=== PATIENT | female | born 1990 | race Hispanic/Latino ===

== ENCOUNTER 2016-06-20 13:01 | Emergency (ER) | payer OTHER ==
[~2016-06-20] VITALS: Ht 156.2 cm; Wt 71.8 kg
[~2016-06-20 13:01] MED LIST: PREN1TAB47 PO; PROM25TA14 PO
[2016-06-20 13:13] VITALS: BP 121/71; PULSE 83; RESP 16; O2SAT 100
[2016-06-20] MEDS ORDERED: Ondansetron 2 mg/mL 2 mL Inj IVPUSH ONE ×2 (14:05→14:10)
[2016-06-20] MEDS ORDERED: HYDROmorphone 0.5 mg/0.5 mL iSecure Syringe IVPUSH PRN (14:05)
[2016-06-20 14:10] LABS: Mean Corpuscular Hemoglobin 31.2 pg (27.0-35.0); Mean Corpuscular Volume 91.6 fL (81-100)
[2016-06-20] MEDS ORDERED: fentaNYL-PF 50 mCg/mL 2 mL Inj IVPUSH PRN (14:10)
[2016-06-20 14:32] LABS: APPEARANCE,URINE HAZY (CLEAR,HAZY); COLOR,URINE YELLOW (YELLOW); OCCULT BLOOD,URINE MODERATE (NEGATIVE); UROBILINOGEN,URINE NORMAL (NORMAL)
--- NOTE | 2016-06-20 14:49 | ED.REPORT ---
HPI- Female Date of Service Jun 20, 2016 ED Provider: Mac Dobbins MD The patient is an otherwise healthy 26 year old female who presents to the ED due to light vaginal bleeding onset six days ago. She is , but unsure how far along, her last normal menstrual cycle was three months ago. She is supposed to have her first OBGYN appointment in five days. Her bleeding increased in severity last night along with severe, 10/10, suprapubic abdominal pain. She is tearful and anxious at the ED. The pt has had one previous, full term, normal with no complications. Nursing Notes Stated Complaint: ABDOMINAL PAIN/BLEEDING/ Chief Complaint: & Delivery Nursing Notes Reviewed: Yes ([facility], [facility] not reconciled) Allergies: Coded Allergies: No Known Allergies (Unverified Allergy, Unknown, 10/04/14) Scheduled Vit/Fe Fumarate/Fa-Expunged Drug, Do (-Expunged Drug, Do Not Renew!) 1 Tab Tablet 1 TAB PO DAILY Scheduled PRN Hydrocodone-Acetaminophen 5-325 mg (Hydrocodone-Acetaminophen 5-325 mg) 1 Each Tablet 1-2 TABLET PO Q4H PRN PRN For Pain General Time Seen by MD: 14:05 Chief Complaint Vaginal bleeding... (Mild) Hx Obtained From: Patient Arrived By: Walk-in Sudden in Onset?: Yes Onset Occurred: Yesterday Symptom Duration: Since onset Location: : Suprapubic Radiation: Does not radiate Severity: Current: Pain level 10 out of 10 Status: Last NL menst cycle (march (3 months ago)) : 1 Para: 1 Recent Healthcare: No recent doctor visit, No recent hospitalization Past Medical History Past Medical History Past Surgical History denies Family History non-contributory Smoking History Never Smoker Social History Alcohol Use: Denies alcohol use Ambulatory Status Independent Review of Systems GI: Reports: Abdominal pain Female: Reports: Vaginal bleeding - abnl Complete sys rev & neg: except as marked. Physical Exam Initial Vital Signs Vital Signs (First) Date Time Temp Pulse Resp B/P Pulse Ox O2 Delivery O2 Flow Rate FiO2 06/20/16 13:13 36.4 83 16 121/71 100 Room Air Initial VS: Reviewed, Vital signs normal Head / Eyes: Atraumatic, Normocephalic, PERRL ENT: Mucous membranes moist, Conjunctiva normal, No scleral icterus Neck: Supple, Non-tender, Full range of motion Respiratory: Breath sounds normal, Clear to auscultation, No respiratory distress Cardiovascular: Regular rate & rhythm, Heart sounds normal, Intact distal pulses Abdomen / GI: Soft, Non-tender, No guarding, No rebound, No distention Extremities: Vascular intact, Neuro intact, No swelling, No tenderness Skin: Warm, Dry, No cyanosis There was blood and clots in the vaginal canal and vault. There is no material at the os. Behavior: Positive: Anxious, Tearful Appearance / Presentation: Positive: Uncomfortable Interpretation & Diagnostics Lab Results Interpretation Result Diagram: 06/20/16 1355 06/20/16 1355 Test 06/20/16 13:55 06/20/16 14:27 White Blood Count 7.3th/mm3 (3.8-10.1) Red Blood Count 4.29mil/mm3 (3.90-5.20) Hemoglobin 13.4g/dL (12.0-15.6) Hematocrit 39.3% (35.0-46.0) Mean Corpuscular Volume 91.6fL (81-100) Mean Corpuscular Hemoglobin 31.2pg (27.0-35.0) Mean Corpuscular Hemoglobin Concent 34.1% (32.0-37.0) Red Cell Distribution Width 12.5% (12.3-15.4) Platelet Count 255bil/L (150-400) Sodium Level 139mEq/L (134-144) Potassium Level 3.6mEq/L (3.5-5.2) Chloride Level 100mEq/L (97-108) Carbon Dioxide Level 25mmol/L (18-29) Blood Urea Nitrogen 7mg/dL (6-20) Creatinine 0.49mg/dL (0.57-1.00) Estimat Glomerular Filtration Rate 219mL/min (>59) Glucose Level 89mg/dL (60-99) Calcium Level 9.4mg/dL (8.5-10.1) Total Bilirubin 0.2mg/dL (0.0-1.2) Aspartate Amino Transf (AST/SGOT) 15U/L (0-50) Alanine Aminotransferase (ALT/SGPT) 12U/L (0-32) Alkaline Phosphatase 58U/L (25-150) Total Protein 7.3g/dL (6.4-8.4) Albumin 4.4g/dL (3.4-5.0) HCG Beta Subunit 1310mIU/mL Urine Color Yellow (YELLOW) Urine Appearance Hazy (CLEAR,HAZY) Urine pH 7.0 (5.0-8.0) Urine Specific [place] 1.010 (1.003-1.035) Urine Protein Negativemg/dL (NEG,TRACE) Urine Glucose (UA) Negativemg/dL (NEGATIVE) Urine Ketones Negativemg/dL (NEGATIVE) Urine Occult Blood Moderate (NEGATIVE) Urine Nitrite Negative (NEGATIVE) Urine Bilirubin Negative (NEGATIVE) Urine Urobilinogen Normalmg/dL (NORMAL) Urine Leukocyte Esterase Negative (NEGATIVE) Urine RBC 11-50/hpf (0-2) Urine WBC 0-5/hpf (0-5) Urine Epithelial Cells Few/hpf (NONE-MOD) Urine Crystals Amorphous urates (NONE Urine Bacteria Few/hpf (NONE-FEW) Urine Hyaline Casts None/lpf (NONE) Urine Granular Casts None seen (NONE SEEN) Urine Waxy Casts None seen (NONE SEEN) Urine Red Blood Cell Casts None seen (NONE SEEN) Urine White Blood Cell Casts None seen (NONE SEEN) Urine Mucus None seen (None Seen) Urine Trichomonas None seen (NONE SEEN) Urine Yeast None (NONE SEEN) Urinalysis Comment None Urine Culture Reflexed Not indicated Lab Results Interpretation: CBC normal, CMP normal, Rh+ hCG 1310 Re-Eval/Medical Decision Med Decision/Clinical Course This is a 26-year-old 2 para 1 who for last period was April presents complaining of vaginal bleeding started 5 days ago, then pain and heavy bleeding and cramping today. She is hemodynamically Normal, she has a soft nontender abdomen without peritoneal signs. She does have a moderate amount of blood on vaginal/pelvic exam, some clots in the pelvis-but no retained products at the cervix, or obvious tissues clearly identified. An ultrasound reveals no true uterine , although his complex debris in the uterus and is suggestive of a probable miscarriage. No ovarian pathology or free fluid was identified. Overall the presentation with heavy bleeding, clots is strongly suggestive of a probable miscarriage. However I have explained that although unlikely, an ectopic cannot be completely excluded at this time, and the close follow-up is indicated. The patient's call the residents clinic tomorrow to schedule a recheck. She is being discharged some pain medicine. Careful discharge instructions and return precautions were reviewed. Source of Hx: Old records Differential Diagnosis: Positive: , spontaneous, Vaginal bleeding, Negative: Ectopic preg, ruptured, Ovarian cyst, Ovarian torsion, hemorrhage Counseled Regarding: Diagnosis, Lab results, Need for follow-up, When/why to return to ED Discharge & Departure Shift Change Sign-Out Patient Care Transferred: Yes Discussed Complaint(s): Yes Laboratory Evaluation: Ordered, not yet done Departure Notes Cannot completely exclude ectopic, follow up recommended Impression: Primary Impression: Miscarriage Disposition: Home Discharge Condition All VS Reviewed: Yes Condition: Stable Referrals: [facility] Care Transferred to: Dr. Servin Care Transferred at: 15:01 Scribe Attestation Portion of this note were transcribed by Elizabeth Fernando. I, Dr. Dobbins, personally performed the history, physical exam, and medical decision-making: I reviewed and confirmed the accuracy for the information in the transcribed note. Signed by: jose Garces, 06/20/16 1501 copies to: [facility] Res[facility] Mac Dobbins MD Jun 20, 2016 14:49 Elizabeth Fernando Jun 20, 2016 14:56 YOBANI CROCKETT Jun 20, 2016 15:22
--- NOTE | 2016-06-20 15:41 | DRSVH ---
PROCEDURE: US PELVIC SONOGRAM + TRANSVAGINAL SONOGRAM INDICATIONS: preg pain bleeding ro ectopic TECHNIQUE: Real-time scanning was performed of the pelvic organs, with image documentation. Additional endovagi nal scanning was necessary due to incomplete visualization of the adnexal and endometrial structures by transabdominal scanning. COMPARISON: None. FINDINGS: (orthogonal measurements) Uterus size: 11.54 cm, 6.56 cm, 7.34 cm Endometrium thickness: 2.54 cm Right ovary size: 3.26 cm, 3.02 cm, 2.04 cm Left ovary size: 1.59 cm, 3.00 cm, 1.30 cm Transabdominal scanning: Limited scanning through the kidneys shows no hydronephrosis. No pathologi c free abdominal or pelvic fluid. Endovaginal scanning: Uterus: Uterus is normal in size and appearance. Endometrium is distended with complex material. N o definite intrauterine is seen. Ovaries: Within normal physiologic limits, with probable mildly complex right corpus luteal cyst. N o adnexal masses are seen. No intraperitoneal fluid. IMPRESSION: Complex material within the endometrial complex which may represent clot. No definite intra-or extrauterine is identified. Differential considerations would include spontaneous , early intrauterine gestation as well as occult ectopic . Recommend c linical correlation with serial beta-hCGs and/or followup sonographic imaging if indicated. Dr. Dobbins given result by the hand candy dipper at 1510 hrs. 06/20/16. Dictated by: Dave Rosenbaum [facility] Interpreted: Dalia Morrison MD on 06/20/2016 at 15:38 Transcribed by: GINNY on 06/20/2016 at 15:40 Approved by: Dalia Morrison MD, PhD on 06/20/2016 at 17:01
[2016-06-20] MEDS ORDERED: HYDR-4003 PO (16:17)
[2016-06-20 17:24] VITALS: BP 102/67; PULSE 70; RESP 16; O2SAT 96
[2016-08-10] MEDS ORDERED: PREN-57 PO (09:31)
[2016-08-10] MEDS ORDERED: ONDA4TAB6 PO (09:31)
== END 2016-06-20 17:25 | disposition home or self-care (01) ==
LOC: SED 13:02
DX: O03.9 Complete or unspecified spontaneous abortion without complication (principal); Z3A.00 Weeks of gestation of pregnancy not specified
CPT/HCPCS: 36415; 76830; 76856; 80053; 81000; 81025; 84702; 85027; 96374; 96375; 99285; J1170; J2405; J3010

== ENCOUNTER 2016-07-31 21:08 | Emergency (ER) | payer OTHER ==
[~2016-07-31 21:08] MED LIST changes: +HYDR-4003 PO; -PROM25TA14 PO
[2016-07-31 21:24] VITALS: BP 127/80; PULSE 67; RESP 18; O2SAT 100
--- NOTE | 2016-07-31 21:55 | ED.REPORT ---
HPI-Abd Pain F Under 40 Date of Service Jul 31, 2016 ED Provider: Elkin Bhagat MD Patient is a 26 year old female who presents to the ED with right sided abdominal onset 2 hours prior to arrival. Patient states that her pain was sudden in onset, as if someone kicked her. Patient reports symptoms like this once previously however she did not seek medical care. She admits to radiation of her pain to her right flank. Patient admits to recent fatty food intolerance , often becoming gassy and uncomfortable after eating large fatty meals. The patient has previously given to one child. She denies a history of kidney stones. She denies dysuria, hematuria, vaginal bleeding, abnormal vaginal discharge, diarrhea, nausea, vomiting, cough, fever, or swelling in her extremities. Nursing Notes Stated Complaint: PAIN IN BACK & STOMACH Chief Complaint: Female Abdominal Pain Nursing Notes Reviewed: Yes Allergies: Coded Allergies: No Known Allergies (Unverified Allergy, Unknown, 10/04/14) Scheduled Vit/Fe Fumarate/Fa-Expunged Drug, Do (-Expunged Drug, Do Not Renew!) 1 Tab Tablet 1 TAB PO DAILY Scheduled PRN Hydrocodone-Acetaminophen 5-325 mg (Hydrocodone-Acetaminophen 5-325 mg) 1 Each Tablet 1-2 TABLET PO Q4H PRN PRN For Pain Ondansetron ODT (Ondansetron ODT) 8 Mg Tab.rapdis 8 MG PO QID PRN PRN For Nausea General Time Seen by MD: 21:55 Chief Complaint Abdominal pain Hx Obtained From: Patient Arrived By: Walk-in Sudden in Onset?: Yes Onset Occurred: 1 - 4 hours ago Symptom Duration: Since onset Location: : Abdomen lower (right) Quality: Painful Radiation: : Flank right Severity: Current: Severe Severity: Maximum: Severe Recent Healthcare: No recent doctor visit, No recent hospitalization Similar Sx Previous: Yes Past Medical History Past Medical History - recent miscarriage (June 20 2016) Past Surgical History denies Family History non-contributory Smoking History Never Smoker Social History Alcohol Use: Denies alcohol use Other Social History: Good social support, Lives with children, Local resident Ambulatory Status Independent Review of Systems Constitutional: Denies: Fever Respiratory: Denies: Non-productive cough GI: Reports: Abdominal pain, Denies: Diarrhea, Nausea, Vomiting Female: Reports: Flank pain, Denies: Dysuria, Hematuria, Vaginal bleeding - abnl, Vaginal discharge Musculoskeletal: Denies: Extremity swelling Complete sys rev & neg: except as marked. Physical Exam Physical Exam Notes: Initial Vital Signs Vital Signs (First) Date Time Temp Pulse Resp B/P Pulse Ox O2 Delivery O2 Flow Rate FiO2 07/31/16 21:24 36.8 67 18 127/80 100 Room Air Initial VS: Reviewed Head / Eyes: Atraumatic, Normocephalic, PERRL ENT: Mucous membranes moist, Conjunctiva normal, No scleral icterus Neck: Supple, Non-tender, Full range of motion Extremities: Vascular intact, Neuro intact, No swelling, No tenderness Skin: Warm, Dry, No cyanosis Neurologic: Alert, Oriented, Nonfocal Psychiatric: Mood/affect normal, Behavior normal, Normal thought content General/Constitutional: Awake, Alert, No acute distress, Well hydrated Respiratory / Chest: Breath sounds NL, Breath sounds = bilat, No respiratory distress, No rales, No rhonchi, No wheezing Cardiovascular: Heart rate NL, Regular rhythm, Heart sounds NL, No murmurs Abdomen: Soft, No palpable mass Tenderness/Guarding/Rebound: Positive: Tender LUQ..., Tender RLQ... (worse on the right than on the left) Back: No midline vertebral tend Flank / Spine / Paraspinal: Positive: Flank tender R Interpretation & Diagnostics Lab Results Interpretation Result Diagram: 07/31/16213707/31/162137 Test 07/31/16 21:38 07/31/16 21:44 White Blood Count 7.5th/mm3 (3.8-10.1) Red Blood Count 3.99mil/mm3 (3.90-5.20) Hemoglobin 12.2g/dL (12.0-15.6) Hematocrit 36.3% (35.0-46.0) Mean Corpuscular Volume 91.0fL (81-100) Mean Corpuscular Hemoglobin 30.6pg (27.0-35.0) Mean Corpuscular Hemoglobin Concent 33.6% (32.0-37.0) Red Cell Distribution Width 12.2% (12.3-15.4) Platelet Count 272bil/L (150-400) Neutrophils (%) (Auto) 57.0% (40-74) Lymphocytes (%) (Auto) 32.0% (14-46) Monocytes (%) (Auto) 7.7% (4-12) Eosinophils (%) (Auto) 2.5% (0-5) Basophils (%) (Auto) 0.5% (0-3) Sodium Level 139mEq/L (134-144) Potassium Level 4.0mEq/L (3.5-5.2) Chloride Level 103mEq/L (97-108) Carbon Dioxide Level 23mmol/L (18-29) Blood Urea Nitrogen 12mg/dL (6-20) Creatinine 0.57mg/dL (0.57-1.00) Estimat Glomerular Filtration Rate 184mL/min (>59) Glucose Level 119mg/dL (60-99) Calcium Level 9.3mg/dL (8.5-10.1) Magnesium Level 2.1mg/dL (1.6-2.6) Total Bilirubin 0.2mg/dL (0.0-1.2) Aspartate Amino Transf (AST/SGOT) 15U/L (0-50) Alanine Aminotransferase (ALT/SGPT) 11U/L (0-32) Alkaline Phosphatase 55U/L (25-150) Total Protein 7.2g/dL (6.4-8.4) Albumin 4.3g/dL (3.4-5.0) Lipase 45U/L (13-60) Hold [place] Top Tube Received (Received) Urine Color Yellow (YELLOW) Urine Appearance Cloudy (CLEAR,HAZY) Urine pH 7.5 (5.0-8.0) Urine Specific [place] 1.010 (1.003-1.035) Urine Protein Negativemg/dL (NEG,TRACE) Urine Glucose (UA) Negativemg/dL (NEGATIVE) Urine Ketones Negativemg/dL (NEGATIVE) Urine Occult Blood Negative (NEGATIVE) Urine Nitrite Negative (NEGATIVE) Urine Bilirubin Negative (NEGATIVE) Urine Urobilinogen Normalmg/dL (NORMAL) Urine Leukocyte Esterase Negative (NEGATIVE) Urine RBC 0-2/hpf (0-2) Urine WBC 0-5/hpf (0-5) Urine Epithelial Cells Occasional/hpf (NONE-MOD) Urine Crystals Amorphous phosphates Urine Bacteria Few/hpf (NONE-FEW) Urine Hyaline Casts None/lpf (NONE) Urine Granular Casts None seen (NONE SEEN) Urine Waxy Casts None seen (NONE SEEN) Urine Red Blood Cell Casts None seen (NONE SEEN) Urine White Blood Cell Casts None seen (NONE SEEN) Urine Mucus None seen (None Seen) Urine Trichomonas None seen (NONE SEEN) Urine Yeast None (NONE SEEN) Urinalysis Comment None Urine Culture Reflexed Not indicated Hold Urine Received (Received) CT Abd / Pelvis Interpretation CONCLUSION: Cholelithiasis. Ultrasound correlation may be helpful if clinically indicated. No evidence of acute appendicitis. Radiologist: Margret Gillespie MD 07/31/2016 - 11:07:49 PM PDT Study type: Abdominal CT IV contrast Interpretation / Wet Read by: Interpret - Radiologist Re-Eval/Medical Decision Med Decision/Clinical Course Med Decision/Clinical Course: 26-year-old sudden onset right-sided flank pain, or bruits to have a large gallstone as well as sludge and smaller stones on CT. No indication of ureteral colic. This is her second episode and she is noted fatty food intolerance previously. She is advised that an elective cholecystectomy would be the best course. Referred to the surgical office and to PCP for further evaluation and management. No evidence of cholecystitis at this point. Discharged in stable condition. Source of Hx: Old records Re-Evaluation/Progress : Time of Eval: 23:32 Patient Status: Condition improved Re-Evaluation/Progress Note: Rechecked the patient. Her pain is much improved. She was informed that she has a gallstone on CT scan. No acute problems on lab. She will be discharged to follow-up with surgery. Patient understands and agrees with the plan to be discharged home. Discharge instructions and follow-up discussed. All questions were addressed. Return to the ED warnings given. Counseled Regarding: Diagnosis, Lab results, Need for follow-up, When/why to return to ED Discharge & Departure Primary Impression: Biliary colic Disposition: Home Discharge Condition All VS Reviewed: Yes Condition: Stable Patient Instructions: Biliary Colic (ED) Additional Instructions: You a large gallstone in your gallbladder, along with some smaller stones and sludge. You can expect attacks like this again in the future. These can result in severe complications, including severe infection and pancreatitis. Follow-up with your doctor in follow-up also with surgery for evaluation for elective cholecystectomy. In the meantime eat a very low fat diet. Omeprazole daily. Vicodin if needed for pain. Zofran if needed for nausea. Return if you have pain that will not go away within a few hours, fever, intractable vomiting, or other new symptoms of concern. Referrals: Anay Infante MD [facility] Res[facility] Scribe Attestation Portions of this note were transcribed by Britney Fowler. I, Dr. Bhagat personally performed the history, physical exam and medical decision-making; I reviewed and confirmed the accuracy of the information in the transcribed note. Signed by: Jyoti Hi, 07/31/2016 [id number] copies to: Anay Infante MD, Christopher W MD Jul 31, 2016 21:55 Britney Fowler Jul 31, 2016 22:04
[2016-07-31 21:58] LABS: BASOPHILS % (AUTO) 0.5 % (0-3); EOSINOPHILS % (AUTO) 2.5 % (0-5); MONOCYTES % (AUTO) 7.7 % (4-12); Mean Corpuscular Hemoglobin 30.6 pg (27.0-35.0); Platelet Count 272 bil/L (150-400)
[2016-07-31] MEDS ORDERED: 0.9% Sodium Chloride 1,000 ML IV ONE (21:59)
[2016-07-31] MEDS ORDERED: HYDROmorphone 0.5 mg/0.5 mL iSecure Syringe IVPUSH PRN (22:00)
[2016-07-31] MEDS ORDERED: Ondansetron 2 mg/mL 2 mL Inj IVPUSH ONE (22:00)
[2016-07-31] MEDS ORDERED: Pantoprazole 4 mg/mL 10 mL Inj IVPUSH ONE (22:00)
[2016-07-31 22:15] LABS: APPEARANCE,URINE CLOUDY (CLEAR,HAZY); COLOR,URINE YELLOW (YELLOW); OCCULT BLOOD,URINE NEGATIVE (NEGATIVE); PH,URINE 7.5 (5.0-8.0); UROBILINOGEN,URINE NORMAL (NORMAL)
[2016-07-31 22:22] LABS: Magnesium 2.1 mg/dL (1.6-2.6)
[2016-07-31] MEDS ORDERED: _HYDROcodone/APAP 5-325 mg Tablet PO PRN (23:30)
[2016-07-31] MEDS ORDERED: _Ondansetron ODT 4 mg Tablet PO PRN (23:30)
[2016-07-31] MEDS ORDERED: ONDA8TAB10 PO (23:33)
[2016-07-31 23:48] VITALS: BP 112/49; PULSE 74; RESP 18; O2SAT 99
--- NOTE | 2016-08-01 08:56 | DRSVH ---
PROCEDURE: CT ABDOMEN AND PELVIS WITH CONTRAST ([id number]) INDICATIONS: rt flank and abdo pain TECHNIQUE: After the administration of intravenous contrast, 5 mm thick sections acquired from the diaphragm to the symphysis. 5 mm coronal and sagittal reformats were acquired. For radiation dose reduction, the following was used: automated exposure control, adjustment of mA and/or kV according to patient siz e. COMPARISON: None. FINDINGS: Image quality: Excellent. ABDOMEN: Lung bases: Lung bases are clear. Heart size is normal. Solid organs: Liver and spleen are normal in size and enhancement. Gallbladder contains at least on e large calculus, which measures up to 2.1 cm in maximal dimension and then additional smaller areas of sludge or small calculi are present more inferiorly within the gallbladder fundus. Biliary system is non dilated. Pancreas enhances normally. No adrenal nodules. Kidneys demonstrate normal size a nd enhancement, without hydronephrosis. Peritoneum and bowel: Bowel loops demonstrate normal wall thickness and caliber, and there is modera te colonic obstipation greater on the right than the left. No free fluid or air. Nodes and vessels: No retroperitoneal or mesenteric adenopathy by size criteria. Aorta and inferior vena cava are normal in size. Miscellaneous: No ventral hernias. PELVIS: Genitourinary: Bladder wall thickness is normal. Endometrial lining thickness is 15 mm, upper limit s of normal. Miscellaneous: No inguinal hernias or adenopathy. Bones: No suspicious bony lesions. No vertebral body compression fractures. IMPRESSION: 1. Gallstones within the gallbladder lumen, the largest of which measures up to 2.1 cm, but there is no associated biliary distention or gallbladder inflammation. 2. There is colonic obstipation greater on the right than the left. 3. Endometrial lining thickness is 15 mm, and presumably a test has been performed. Endom etrial hyperplasia threshold is reached at 15 mm. also could produce such an appearance. Dictated by: Sekou Bui M.D. on 08/01/2016 at 8:51 Approved by: Sekou Bui M.D. on 08/01/2016 at 8:55
[2016-08-10] MEDS ORDERED: PREN-57 PO (09:31)
[2016-08-10] MEDS ORDERED: ONDA4TAB6 PO (09:31)
== END 2016-07-31 23:49 | disposition home or self-care (01) ==
LOC: SED 21:08
DX: K80.20 Calculus of gallbladder without cholecystitis without obstruction (principal)
CPT/HCPCS: 36415; 74177; 80053; 81000; 81025; 83690; 83735; 85025; 96361; 96374; 96375; 99285; J1170; J1885; J2405; J7030; Q9967

== ENCOUNTER 2016-08-15 10:00 | Day surgery (SDC) | payer OTHER ==
[2016-08-15] VITALS (10 sets, daily range): BP systolic 111–126; BP diastolic 56–71; PULSE 69–86; RESP 16–21; O2SAT 93–99
[~2016-08-15] VITALS: Ht 154.9 cm; Wt 73.5 kg
[~2016-08-15 10:00] MED LIST changes: +Lactated Ringer's 1,000 ML IV SCH; +ONDA4TAB6 PO; +PREN-57 PO; -PREN1TAB47 PO
[2016-08-15] MEDS ORDERED: Rocuronium 10 mg/mL 5 mL Inj ONE (10:01)
[2016-08-15] MEDS ORDERED: Ondansetron 2 mg/mL 2 mL Inj ONE (10:01)
[2016-08-15] MEDS ORDERED: Succinylcholine Chloride 20 mg/mL 5 mL Inj ONE (10:01)
[2016-08-15] MEDS ORDERED: Glycopyrrolate 0.2 MG/ML 1mL Inj ONE (10:01)
[2016-08-15] MEDS ORDERED: Propofol 10,000 mCg/mL 20 mL Inj ONE (10:01)
[2016-08-15] MEDS ORDERED: Neostigmine 1 mg/mL 10 mL Inj ONE (10:01)
[2016-08-15] MEDS ORDERED: Ketamine 10 mg/mL 20 mL Inj ONE (10:01)
[2016-08-15] MEDS ORDERED: Dexamethasone 4 mg/mL Inj ONE (10:01)
[2016-08-15] MEDS ORDERED: fentaNYL-PF 50 mCg/mL 2 mL Inj ONE (10:01)
[2016-08-15] MEDS ORDERED: Lactated Ringer's 1,000 ML IV ONE (11:03)
[2016-08-15] MEDS ORDERED: Bupivacaine 0.5%/EPI 50 mL Inj INFILTRATE ONE (13:30)
[2016-08-15] MEDS ORDERED: Lactated Ringer's 1,000 ML IV SCH (13:32)
[2016-08-15] MEDS ORDERED: Lactated Ringer's 500 ML IV PRN (13:32)
--- NOTE | 2016-08-15 13:32 | PCM.HPANE ---
Patient Data Date of Service: August 15, 2016 Surgeon Admitting Provider: Attending Provider:Anay Infante MD Primary Care Physician:Trevon Other Provider:Trudi Abraham Anesthesia Reason for Visit Biliary Colic Ht/WT & BMI Height (Feet): 5 Height (Inches): 1 Weight (Kilograms): 73.482 Body Mass Index 30.00 Allergies Coded Allergies: No Known Allergies (Verified Allergy, Unknown, 08/10/16) Past Anesthesia History Anesthesia History: Denies:: Abnormal Airway, Anesthesia Reactions, Difficult Intubation, Fam Anesthesia Reaction, Fam Malignant Hypertherm, Malignant Hyperthermia Diabetes History Hx Diabetes?: No MRSA MRSA: No Medications Home Meds Incl Beta Susie: No Active Scripts Hydrocodone-Acetaminophen 5-325 mg 1 Each Tablet1-2 Tablet PO Q4H PRN For Pain # 10 TABLET Ref 0 Prov:Mac Dobbins MD 06/20/16 Reported Medications Pnv No.118/Iron Fumarate/FA ( 19 Chewable Tablet)1 Each Tab.chew1 Each PO DAILY 08/10/16 Ondansetron (Zofran)4 Mg Tablet4 Mg PO Q4H PRN For Nausea 08/10/16 Discontinued Reported Medications Vit/Fe Fumarate/Fa-Expunged Drug, Do (-Expunged Drug, Do Not Renew!)1 Tab Tablet1 Tab PO DAILY 01/16/12 Discontinued Scripts Ondansetron ODT 8 Mg Tab.rapdis8 Mg PO QID PRN For Nausea #20 TABLET Prov:Elkin Bhagat MD 07/31/16 History History of ENT Problems?: No HEENT History: Denies:: Abnormal Airway Cataracts Difficult Intubation Dysphagia Glaucoma Hearing Problem Sinus Problem TMJ Denture Type: None Teeth Condition: Within Normal Limits Hx of Heart Problems?: No Cardiovascular History: Denies:: Heart Murmur Hypertension Hx of Respiratory Problem?: No Respiratory History: Denies:: Use of C-PAP Machine Hx Neurologic Problems?: No Hx of GI Problems?: Yes Hx of Problems?: No HX of Peritoneal Dialysis: No Female Hx: Denies:: Currently (HX MISSED AB 06/2016) Skin History: Denies:: History Skin Disorders? Pressure Ulcers Hx Musculoskeletal Problems?: No Hx of Psycho/Social Problems?: No Hx Surgeries?: No Hx Any Other Health Problems?: No Other History: Positive for:: Hospitalization ([facility]) Denies:: Cancer Endocrine Disease Thyroid Disease History Blood Transfusions: Denies:: Blood Transfusions Hx Diabetes: No Hx Alcohol Use: NoHx Substance Use: No Smoking Status: Never Smoker Have You Smoked inLast 12 mo: No Stop/Bang Treated for Sleep Apnea?: No Do You Have a CPAP Machine?: No S-Snoring: Do You Snore Loudly: No T-Tired: feel tired, fatigued: No O-Obsered: Observed not breath: No P-Blood Pressure: treated: No B- Body Mass Index > 35 kg/m2: No A- Age over 50: No N- Neck Large Circumference: No G- Gender Male: No CAMELIA Total Score: 0 CAMELIA Risk Assessment: Low Risk, <3 Yes Risk Assessment Category Category 1A: Patient has history of documented sleep apnea, and HAS NOT received any narcotic, sedative or anesthesia administration during this stay. Category 1B: Patient has history of documented sleep apnea, and HAS received any narcotic , sedative or anesthesia administration during this stay Category 2: Patient has SUSPECTED Obstructive Sleep Apnea, and HAS received any narcotic , sedative or anesthesia administration during this stay. Category 3: Patient has SUSPECTED Obstructive Sleep Apnea and HAS NOT received narcotic, sedative or anesthesia administration during this stay. Category 4: Outpatient in Procedural Areas with known sleep apnea or who screen positive for High Risk via the STOP/BANG questionnaire. Exam Exam Vital Signs Vital Signs Date Time Temp Pulse Resp B/P Pulse Ox O2 Delivery O2 Flow Rate FiO2 08/15/16 11:04 35.9 69 20 116/65 97 Room Air General Appearance: Alert HEENT/AIRWAY: MP 1 Lungs: Clear to Auscultation Heart: Exam Unremarkable Meds/Labs/Diagnostics Admission Meds Current Medications Gabapentin (Neurontin) 600 mg STK-MED ONCE .ROUTE Last administered on 10:45; Start 08/15/16 at 10:26; Stop 08/15/16 at 10:29; Status DC Celecoxib (CeleBREX) 200 mg STK-MED ONCE .ROUTE Last administered on 08/15/16 10:45; Start 08/15/16 at 10:27; Stop 08/15/16 at 10:29; Status DC Scopolamine (Transderm-Scop Patch) 1.5 mg STK-MED ONCE TOPICAL Last administered on 08/15/16 10:45; Start 08/15/16 at 10:27; Stop 08/15/16 at 10:29 ; Status DC Acetaminophen 975 mg 975 mg STK-MED ONCE PO Last administered on 08/15/16 11: 05; Start 08/15/16 at 10:27; Stop 08/15/16 at 10:29; Status DC Lactated Ringer's (Lr) 1,000 ml @ ud STK-MED ONCE IV Last administered on 08/15 11:03; Start 08/15/16 at 11:03; Stop 08/15/16 at 11:04; Status DC Plan Impression Patient chart reviewed, patient interviewed and anesthestic plan with risks, benefits, and alternatives discussed, and informed consent obtained. NPO per Anesth. Guidelines: Yes ASA Physical Status: ASA1 Normal Healthy Anesthetic Plan: GA Bene/Risks/Altern/Consents: Yes HP Complete Prior to Induction: Yes Andrew Reilly MD August 15, 2016 13:32
[2016-08-15] MEDS ORDERED: Dexamethasone 4 mg/mL Inj IVPUSH PRN (13:35)
[2016-08-15] MEDS ORDERED: fentaNYL-PF 50 mCg/mL 2 mL Inj IVPUSH PRN (13:35)
[2016-08-15] MEDS ORDERED: MetoCLOpramide 5 mg/mL 2 mL Inj IVPUSH PRN (13:35)
[2016-08-15] MEDS ORDERED: Ondansetron 2 mg/mL 2 mL Inj IVPUSH PRN (13:35)
[2016-08-15] MEDS ORDERED: EPHEDrine Sulfate 50 mg/mL Inj IVPUSH PRN (13:35)
[2016-08-15] MEDS ORDERED: Phenylephrine 10,000 mCg/mL Inj IVPUSH PRN (13:35)
[2016-08-15] MEDS ORDERED: HYDROmorphone 1 mg/mL Inj IVPUSH PRN (13:35)
[2016-08-15] MEDS ORDERED: oxyCODONE-Acetamin 5-325 mg Tablet PO PRN (14:35)
--- NOTE | 2016-08-15 14:35 | PCM.SURGOP ---
Surgical Operative Report Date of Service: August 15, 2016 Pre Operative Diagnosis Biliary colic Post Operative Diagnosis Chronic cholecystitis Procedure: Laparoscopic cholecystectomy Surgeon and Paper Sales Representative: Surgeon: Anay Infante MD Assistants: Christiano Mckeon PA-C; Ramakrishna Merlos MS3 Presence of an power plant assistant was necessary for dissection and retraction. Indication for Procedure There is a 26 old woman who presented to the emergency department with postprandial epigastric and right upper quadrant pain. Abdominal CT scan was performed and revealed a 2.1 cm gallstone. She was diagnosed with biliary colic and consented for laparoscopic cholecystectomy. Findings: Moderately inflamed gallbladder with overlying adhesions. A single large gallstone, approximately 2 cm in size. Procedure Details The patient was brought to the operating room and placed in supine position. General endotracheal anesthesia was smoothly induced. Antibiotics were infused. A warming blanket and SCDs were placed. A foot board was placed. The operative field was prepped and draped in sterile fashion. A pause was performed to confirm the correct patient, procedure, site, and side. A transverse 10 mm incision was made just below the umbilicus. The abdomen was entered under direct vision using a Marely port. Three additional 5 mm ports were placed in the epigastrium and right upper quadrant. The gallbladder was identified and lifted cephalad. The duodenum was gently dissected off of the gallbladder. Dissection then proceeded to identify the cystic duct, cystic artery, and to expose the bottom one third of the cystic plate. Once there were two and only two structures entering the gallbladder, the cystic duct was clipped on the gallbladder and patient side, and the cystic artery was clipped twice on the patient's side and once on the gallbladder side, and both were then divided. The gallbladder was then removed from its bed on the liver with electrocautery. Prior to completely removing the gallbladder, a final look was taken at the stump of the cystic artery and cystic duct, and there was no bleeding or bile leak. The gallbladder was then fully removed from the liver and placed in an EndoCatch bag and removed. The three 5 mm ports were removed under direct vision, the 10 mm mid abdominal port was removed, and a figure-of- eight 0 Vicryl was used to close the fascia. There was no fascial defect at the end of the case. 0.5% Marcaine with epinephrine was infused at all port sites for postoperative analgesia. The skin was closed with subcuticular 4-0 Monocryl. Sterile dressings were placed. The patient was awakened from general anesthesia and taken to the postoperative care unit in good condition. Complications There were no periprocedural complications identified. Surgical Specimen Removed: Yes Specimen sent to Pathology: Yes Surgical Specimen description: Gallbladder Anesthetic Plan: GA Grafts, Implants: None Output, Estimated Blood Loss: 2 (ml) Blood Administration during key: No Anay Infante MD August 15, 2016 14:35
[2016-08-15] MEDS ORDERED: OXYC5CAP4 PO (14:37)
--- NOTE | 2016-08-15 15:19 | PCM.ANEP1 ---
Post Anesthesia Phase 1 PACU Phase 1 Assessment Date of Service: August 15, 2016 Vital Signs Vital Signs Date Time Temp Pulse Resp B/P Pulse Ox O2 Delivery O2 Flow Rate FiO2 08/15/16 14:45 36.4 75 21 126/71 98 Room Air 08/15/16 14:40 77 19 124/66 97 Room Air 08/15/16 14:35 36.4 75 18 119/67 97 Room Air 08/15/16 14:30 71 16 117/66 99 Nasal Cannula 3 08/15/16 14:25 72 16 118/61 98 Nasal Cannula 3 08/15/16 14:20 72 17 111/63 97 Nasal Cannula 3 08/15/16 14:14 36.6 79 19 114/56 93 Room Air 08/15/16 11:04 35.9 69 20 116/65 97 Room Air Anesthetic Administered: GA Level of Alertness: Sleeping, hard to arouse Pain: No Nausea or Vomiting: No Oxygen Delivery: Room Air Lungs: Clear to Auscultation Complications: No Follow up Care: No Andrew Reilly MD August 15, 2016 15:19
[2016-08-15] MEDS ORDERED: oxyCODONE-Acetamin 10-325 mg Tablet PO ONE (15:44)
[2016-08-15] MEDS ORDERED: HYDR-4003 PO (16:38)
[2016-08-15] MEDS ORDERED: HYDROcodone-APAP 5-325 mg Tablet PO PRN (16:40)
--- NOTE | 2016-08-16 15:33 | PATH ---
SURGICAL PATHOLOGY Attending Physician:Anay Infante MD CASE STATUS: Signed Out PATIENT NAME: LYN PRUITT PID: [id number] : 1990 DATE COLLECTED:08/15/2016 23:47 SPECIMEN: Gallbladder CLINICAL HISTORY: BILIARY COLIC 1). GALLBLADDER & CONTENTS FINAL DIAGNOSIS: 1.GALLBLADDER: CHRONIC CHOLECYSTITIS WITH CHOLELITHIASIS. CHOLESTEROLOSIS. NO EVIDENCE OF MALIGNANCY. ICD10 CODE K80.6 GROSS DESCRIPTION: The specimen is received in one formalin filled container labeled with the patient's name, sublabeled "gallbladder" and consists of an intact 10.0 x 3.0 x 3.0 CM gallbladder. The serosa is smooth. The wall is 0.2-0.4 CM in thickness. The mucosa is a yellow green in color. The lumen contains a dark green mucoid material and one yellow-green rough calculus which measures 2.3 x 2.0 x 2.0 CM. 5 desk representative sections are submitted in one cassette. 08/16/2016 DAC MICRO DESCRIPTION: See diagnosis. ICD-9 CODES: CPT CODES: 1: 76845 Electronically Signed Out Matthew Mayberry MD [facility] [address], [place] [address] Technical component performed at [facility], [facility] [address], [place], [address]
== END 2016-08-15 23:59 | disposition home or self-care (01) ==
LOC: SAS 10:00
PROVIDERS: ATTEND Surgery
DX: K80.10 Calculus of gallbladder with chronic cholecystitis without obstruction (principal)
CPT/HCPCS: 47562; 88304; J0330; J1100; J1885; J2250; J2405; J2710; J3010; J7120

== ENCOUNTER 2016-10-16 11:28 | Emergency (ER) | payer OTHER ==
[~2016-10-16] VITALS: Ht 157.5 cm; Wt 68.2 kg
[~2016-10-16 11:28] MED LIST changes: -Lactated Ringer's 1,000 ML IV SCH; +OXYC5CAP4 PO
[2016-10-16 11:35] VITALS: BP 110/69; PULSE 74; RESP 16; O2SAT 99
[2016-10-16] MEDS ORDERED: 0.9% Sodium Chloride 1,000 ML IV ONE (13:23)
[2016-10-16] MEDS ORDERED: MetoCLOpramide 5 mg/mL 2 mL Inj IM ONE (13:25)
--- NOTE | 2016-10-16 13:30 | ED.REPORT ---
HPI-Abd Pain F Under 40 Date of Service Oct 16, 2016 ED Provider: Abhilash Lin PA-C Deepti is an otherwise healthy 26-year-old female presenting with a chief complaint of lower abdominal pain. Patient states that the symptoms began approximately 2 hours ago. Patient notes that she is about 11 weeks and reports a history of miscarriage several months ago. Patient denies vaginal bleeding or discharge, fever, vomiting, diarrhea, melena, hematochezia, hematuria, dysuria. Admits a history of cholecystectomy in August. Nursing Notes Stated Complaint: ABDOMINAL PAIN Chief Complaint: Female Abdominal Pain Nursing Notes Reviewed: Yes Allergies: Coded Allergies: No Known Allergies (Verified Allergy, Unknown, 08/10/16) Scheduled Pnv No.118/Iron Fumarate/FA ( 19 Chewable Tablet) 1 Each Tab.chew 1 TABLET PO DAILY General Time Seen by MD: 13:15 Chief Complaint Abdominal pain Past Medical History Past Medical History - recent miscarriage (June 20 2016) Past Surgical History denies Family History non-contributory Smoking History Never Smoker Social History Alcohol Use: Denies alcohol use Other Social History: Good social support, Lives with children, Local resident Ambulatory Status Independent Review of Systems Review of Systems Note: Negative unless stated otherwise in history of present illness Physical Exam General: Well appearing, well developed, well nourished, no acute distress. Head: Atraumatic, normocephalic. Eyes: No scleral icterus or injection. No discharge. Vision grossly intact. ENT: Voice clear, hearing grossly intact. Respiratory: Regular rate and rhythm. Breath sounds present, clear to auscultation and equal bilaterally. No respiratory distress. No increased work of breathing, speaks in complete sentences. Cardiovascular: Regular rate and rhythm, without murmur, gallop or rub. No pedal edema. Gastrointestinal: Abdomen flat with mild to moderate suprapubic tenderness without guarding or rebound. Bowel sounds normoactive. Back: Normal to inspection, no CVA tenderness. Skin: Warm and dry. Neurological: Grossly nonfocal. Psychological: Alert and oriented. Speech appropriate, linear and logical. Behavior appropriate. Initial Vital Signs Vital Signs (First) Date Time Temp Pulse Resp B/P Pulse Ox O2 Delivery O2 Flow Rate FiO2 10/16/16 11:35 37.1 74 16 110/69 99 Room Air Normal Interpretation & Diagnostics Lab Results Interpretation Result Diagram: 10/16/16 1350 10/16/16 1350 Test 10/16/16 13:36 10/16/16 13:50 Urine Color Yellow (YELLOW) Urine Appearance Clear (CLEAR,HAZY) Urine pH 6.0 (5.0-8.0) Urine Specific [place] 1.010 (1.003-1.035) Urine Protein Negativemg/dL (NEG,TRACE) Urine Glucose (UA) Negativemg/dL (NEGATIVE) Urine Ketones Negativemg/dL (NEGATIVE) Urine Occult Blood Negative (NEGATIVE) Urine Nitrite Negative (NEGATIVE) Urine Bilirubin Negative (NEGATIVE) Urine Urobilinogen Normalmg/dL (NORMAL) Urine Leukocyte Esterase Negative (NEGATIVE) Urine RBC 0-2/hpf (0-2) Urine WBC 0-5/hpf (0-5) Urine Epithelial Cells Occasional/hpf (NONE-MOD) Urine Crystals None seen (NONE SEEN) Urine Bacteria Few/hpf (NONE-FEW) Urine Hyaline Casts None/lpf (NONE) Urine Granular Casts None seen (NONE SEEN) Urine Waxy Casts None seen (NONE SEEN) Urine Red Blood Cell Casts None seen (NONE SEEN) Urine White Blood Cell Casts None seen (NONE SEEN) Urine Mucus None seen (None Seen) Urine Trichomonas None seen (NONE SEEN) Urine Yeast None (NONE SEEN) Urine Culture Reflexed Indicated White Blood Count 6.9th/mm3 (3.8-10.1) Red Blood Count 3.95mil/mm3 (3.90-5.20) Hemoglobin 12.5g/dL (12.0-15.6) Hematocrit 35.8% (35.0-46.0) Mean Corpuscular Volume 90.6fL (81-100) Mean Corpuscular Hemoglobin 31.6pg (27.0-35.0) Mean Corpuscular Hemoglobin Concent 34.9% (32.0-37.0) Red Cell Distribution Width 12.7% (12.3-15.4) Platelet Count 240bil/L (150-400) Neutrophils (%) (Auto) 69.6% (40-74) Lymphocytes (%) (Auto) 20.3% (14-46) Monocytes (%) (Auto) 8.2% (4-12) Eosinophils (%) (Auto) 1.4% (0-5) Basophils (%) (Auto) 0.4% (0-3) Sodium Level 136mEq/L (134-144) Potassium Level 3.4mEq/L (3.5-5.2) Chloride Level 102mEq/L (97-108) Carbon Dioxide Level 19mmol/L (18-29) Blood Urea Nitrogen 6mg/dL (6-20) Creatinine 0.38mg/dL (0.57-1.00) Estimat Glomerular Filtration Rate 293mL/min (>59) Glucose Level 80mg/dL (60-99) Calcium Level 9.1mg/dL (8.5-10.1) Total Bilirubin 0.2mg/dL (0.0-1.2) Aspartate Amino Transf (AST/SGOT) 16U/L (0-50) Alanine Aminotransferase (ALT/SGPT) 13U/L (0-32) Alkaline Phosphatase 55U/L (25-150) Total Protein 7.1g/dL (6.4-8.4) Albumin 4.0g/dL (3.4-5.0) HCG Beta Subunit [id number]/mL Hold Urrutia Top Tube Received (Received) Re-Eval/Medical Decision Med Decision/Clinical Course Otherwise healthy 26-year-old female presents with chief complaint abdominal pain for approximately 2 hours. Patient reports that she is 11 weeks and is concerned because she had a miscarriage in August. Denies vaginal bleeding or other symptoms. CBC, CMP and urinalysis are all unremarkable. Vital signs are normal. Pelvic exam was declined. Ultrasound reveals a 9 week 1 day intrauterine with a small (less than 2 cm) nonactive subchorial bleed. Negative for free fluid. Reexamination of the patient, she states that her symptoms have improved significantly. She also remarks that the pain she felt similar to the pain she typically feels before she has to have a bowel movement, but more severe. She reports having a bowel movement before presentation to the emergency department and that her pain is resolving. I discussed this case with Dr. Baldwin, he advises getting a beta hCG Quant and discharging the patient. We are reassured against ectopic , find PID, ovarian torsion, abscess, appendicitis unlikely. The patient has follow-up with an buffet attendant next week, though she cannot recall the name reports she has written down at home. Advised follow-up as planned, provided emergency return precautions. Patient verbalizes understanding of and consent to the plan. Discharge & Departure Primary Impression: Weeks of gestation: 9 weeks Qualified Code: Z3A.09 - 9 weeks gestation of Additional Impression: Abdominal pain Abdominal location: unspecified location Qualified Code: R10.9 - Unspecified abdominal pain Disposition: Home Discharge Condition All VS Reviewed: Yes Condition: Stable Patient Instructions: Acute Abdominal Pain (ED) Additional Instructions: Evaluation in the emergency department for abdominal pain includes history, physical examination, blood work, urinalysis and ultrasound all of which are reassuring that you have a normal 9 week . I believe you are stable and safe to go home. The abdominal pain appears to have resolved. Follow-up with your new primary care provider next week as you have planned. Return to emergency department for any new or worsening symptoms including increasing pain, fever, vaginal bleeding. Referrals: OTHER,PHYSICIAN Cannot recall name, has an appointment written down at home EDSupervising Provider for APC: Chinedu Baldwin MD, Seth PA-C Oct 16, 2016 13:30
[2016-10-16 13:57] LABS: BASOPHILS % (AUTO) 0.4 % (0-3); EOSINOPHILS % (AUTO) 1.4 % (0-5); MONOCYTES % (AUTO) 8.2 % (4-12); Mean Corpuscular Hemoglobin 31.6 pg (27.0-35.0); Mean Corpuscular Volume 90.6 fL (81-100); NEUTROPHILS % (AUTO) 69.6 % (40-74); Platelet Count 240 bil/L (150-400)
[2016-10-16] MEDS ORDERED: MetoCLOpramide 5 mg/mL 2 mL Inj IVPUSH ONE (14:05)
[2016-10-16 14:09] LABS: APPEARANCE,URINE CLEAR (CLEAR,HAZY); COLOR,URINE YELLOW (YELLOW)
[2016-10-16 14:10] LABS: OCCULT BLOOD,URINE NEGATIVE (NEGATIVE); UROBILINOGEN,URINE NORMAL (NORMAL)
[2016-10-16 15:10] VITALS: BP 114/73; PULSE 76; RESP 18; O2SAT 100
--- NOTE | 2016-10-16 15:11 | DRSVH ---
+/- 7 days from 14 weeks to 15 weeks 6 days gestation, +/- 10 days from 16 weeks to 21 weeks 6 days g estation, +/- 2 weeks from 22 weeks to 27 weeks 6 days gestation, +/- 3 weeks for 28 weeks gestation or later. PROCEDURE: US OB<14 WKS INDICATIONS: 11 weeks , lower abdominal pain OUTSIDE/PRIOR DATING DATA: Last menstrual period (LMP): Unknown. LMP-based estimated date of delivery (ALMA): Unavailable. First dating scan (date and location): 10/16/16, [facility]. Estimated date of delivery (ALMA) from first dating scan: 05/20/17. TECHNIQUE: Real-time scanning was performed of the fetus and maternal pelvic organs, with image documentation. Endovaginal scanning was also performed to better visualize the fetus and maternal ovaries. COMPARISON: None. FINDINGS: Embryo: OB-CAR WASHER Ultrasound Procedure Report Early Gestation [facility] [place] Rump Length: 2.39 cm Gestational Age (CRL): 9 weeks, 1 day Summary Fetus Summary Heart Rate: 153 bpm Comments: There is a 1.9 x 0.9 x 1.5 cm vimal-gestational bleed. Measurement variability in dating: +/- 4 weeks by LMP, +/- 7 days by mean sac diameter (use before 6 weeks gestation if crown-rump length not able to be measured), +/- 5 days by crown-rump length (up t o 8 weeks 6 days gestation), +/- 7 days by crown-rump length (from 9 weeks to 13 weeks 6 days gestati on). Maternal organs: Ovaries have a normal appearance. Limited images through the kidneys demonstrate n o hydronephrosis. IMPRESSION: 1. Single live intrauterine gestation with a gestational age of 9 weeks, one day by crown-rump length . 2. Small vimal-gestational bleed. Approved by: Keara Jacob M.D. on 10/16/2016 at 15:09
== END 2016-10-16 15:10 | disposition home or self-care (01) ==
LOC: SED 11:28
DX: O26.891 Other specified pregnancy related conditions, first trimester (principal); R10.30 Lower abdominal pain, unspecified; Z3A.11 11 weeks gestation of pregnancy
CPT/HCPCS: 36415; 76801; 80053; 81000; 84702; 85025; 87086; 87088; 96361; 96374; 99285; J2765; J7030

== ENCOUNTER 2016-12-31 09:35 | Emergency (ER) | payer OTHER ==
[~2016-12-31 09:35] MED LIST changes: -HYDR-4003 PO; -ONDA4TAB6 PO; -OXYC5CAP4 PO
[2016-12-31 09:43] VITALS: BP 109/64; PULSE 81; RESP 18; O2SAT 98
--- NOTE | 2016-12-31 09:58 | ED.REPORT ---
HPI-Headache Date of Service Dec 31, 2016 ED Provider: Amarilis Boogie MD Patient is a 26 year old female who is 20 weeks who presents to the ED complaining of a headache onset 3 days ago. Associated symptoms include inability to sleep secondary to pain and photophobia. She denies fever, chills or feeling sick. The patient reports she has tried taking Tylenol without relief. She states that she does not get these headaches often and it has not been worse since her . Nursing Notes Stated Complaint: HEADACHE Chief Complaint: Headache Nursing Notes Reviewed: Yes Allergies: Coded Allergies: No Known Allergies (Verified Allergy, Unknown, 12/31/16) Scheduled Pnv No.118/Iron Fumarate/FA ( 19 Chewable Tablet) 1 Each Tab.chew 1 TABLET PO DAILY General Time Seen by MD: 09:57 Chief Complaint Headache Hx Obtained From: Patient Arrived By: Walk-in Sudden in Onset?: Yes Onset Occurred: 3 days ago Symptom Duration: Since onset Location: : Generalized Quality: Painful Severity: Current: Moderate Past Medical History Past Medical History - recent miscarriage (June 20 2016) pregant 20 weeks (12/31/16) Past Surgical History denies Family History non-contributory Smoking History Never Smoker Social History Alcohol Use: Denies alcohol use Other Social History: Good social support, Lives with children, Local resident Ambulatory Status Independent Review of Systems Constitutional: Denies: Chills, Fever Eyes: Reports: Photophobia GI: Denies: Abdominal pain, Vomiting Neurologic: Reports: Headache Complete sys rev & neg: except as marked. Respiratory: Denies: Non-productive cough Female: Reports: Physical Exam Initial Vital Signs Vital Signs (First) Date Time Temp Pulse Resp B/P Pulse Ox O2 Delivery O2 Flow Rate FiO2 12/31/16 09:43 36.4 81 18 109/64 98 Room Air Initial VS: Reviewed General/Constitutional: Awake, Alert Head / Eyes: Atraumatic, Normocephalic Neck: Atraumatic, Supple Neurologic: Oriented X3, Speech NL Respiratory / Chest: Atraumatic, Breath sounds NL, Breath sounds = bilat, No respiratory distress Cardiovascular: Heart rate NL, Regular rhythm 2/6 systolic ejection murmur present Abdomen: Atraumatic, Soft, Non-tender uterus is at the umbilicus Skin: Atraumatic, Color NL, No rash, Warm, Dry Upper Extremity / MS: Atraumatic, Inspection NL Lower Extremity / Pelvis / MS: Atraumatic, Inspection NL Re-Eval/Medical Decision Med Decision/Clinical Course Prior to IV start and prior to the administration of any medications Deepti has decided she would like to go home. She is able to walk out without any difficulties and encouraged her to return should she have additional questions or problems verbal discharge instructions only are given. Re-Evaluation/Progress : Time of Eval: 11:04 Re-Evaluation/Progress Note: Patient is no longer in room. She told the nurse she would like to go home and left without discharge instructions. Discharge & Departure Impression: Primary Impression: Migraine Migraine type: unspecified Status migrainosus presence: without status migrainosus Intractability: not intractable Qualified Code: G43.909 - Migraine, unspecified, not intractable, without status migrainosus Disposition: Home Discharge Condition All VS Reviewed: Yes Condition: Stable Referrals: NOPCP (PCP) Scribe Attestation Portions of this note were transcribed by Linda Zepeda. I, Dr. Boogie personally performed the history, physical exam and medical decision-making; I reviewed and confirmed the accuracy of the information in the transcribed note. Signed by: Jyoti Almanza, 12/31/16. Amarilis Boogie MD Dec 31, 2016 09:58 Omaira Zepeda Dec 31, 2016 10:10
[2016-12-31] MEDS ORDERED: 0.9% Sodium Chloride 1,000 ML IV ONE (10:51)
[2016-12-31] MEDS ORDERED: Ondansetron 2 mg/mL 2 mL Inj IVPUSH ONE (10:55)
[2016-12-31] MEDS ORDERED: Ketorolac 15 mg/mL Inj IVPUSH ONE (10:55)
== END 2016-12-31 11:02 | disposition home or self-care (01) ==
LOC: SED 09:35
DX: O99.352 Diseases of the nervous system complicating pregnancy, second trimester (principal); G43.909 Migraine, unspecified, not intractable, without status migrainosus; H53.149 Visual discomfort, unspecified; Z72.820 Sleep deprivation; Z3A.20 20 weeks gestation of pregnancy